=== PATIENT | female | born 1990 | race Caucasian/White ===

== ENCOUNTER 2023-01-19 09:33 | Outpatient (CLI) | payer OTHER | END 2023-01-19 09:34 | disposition home or self-care (01) | LOC: CSHNM 09:33 | PROVIDERS: ATTEND Physician Assistant Medical | DX: R10.10 Upper abdominal pain, unspecified (principal); R19.4 Change in bowel habit; R63.4 Abnormal weight loss | CPT/HCPCS: 78227; A9537 ==